=== PATIENT | female | born 1985 | race Caucasian/White ===

== ENCOUNTER 2017-10-01 17:04 | Emergency (ER) | payer OTHER ==
[~2017-10-01] VITALS: Ht 165.1 cm; Wt 108.0 kg
[2017-10-01 17:04] VITALS: BP 133/75
[~2017-10-01 17:04] MED LIST: HYDR-971 PO; ONDA4TAB10 PO
--- NOTE | 2017-10-01 17:39 | RAD ---
EXAM: 1. Left forearm 2 views. 2. Left wrist 3 views. HISTORY: Trauma. Left wrist and forearm pain. COMPARISON: None. FINDINGS: There is soft tissue swelling along the dorsal and ulnar aspect of the wrist. No fractures are identified throughout. The joint spaces and alignment of the left wrist are maintained. Joint spaces and alignment at the elbow are grossly maintained. IMPRESSION: 1. Soft tissue swelling. No fracture. Electronically signed by: Dario Gaines MD (10/01/2017 5:35 PM) [facility]
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
== END 2017-10-01 17:55 | disposition home or self-care (01) ==
LOC: ER 17:04
DX: S50.12XA Contusion of left forearm, initial encounter (principal); E03.9 Hypothyroidism, unspecified; Z88.5 Allergy status to narcotic agent; W22.8XXA Striking against or struck by other objects, initial encounter; Y93.89 Activity, other specified; Y99.8 Other external cause status; Y92.89 Other specified places as the place of occurrence of the external cause
CPT/HCPCS: 73090; 73110; 99284

== ENCOUNTER 2019-04-26 12:23 | Emergency (ER) | payer OTHER ==
[~2019-04-26] VITALS: Ht 165.1 cm; Wt 109.0 kg
[~2019-04-26 12:23] MED LIST changes: +HYDR-3165 PO; -HYDR-971 PO
[2019-04-26 12:33] VITALS: BP 152/93
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
--- NOTE | 2019-04-26 13:27 | RAD ---
CT of the bony orbits Indication: Possible blowout fracture. Exposure: One or more of the following individualized dose reduction techniques were utilized for this examination: 1. Automated exposure control 2. Adjustment of the mA and/or kV according to patient size 3. Use of iterative reconstruction technique. Technique: Standard imaging without intravenous contrast. Due to technique, study does not provide diagnostic intracranial evaluation but no obvious midline shift or mass effect. Orbits appear unremarkable. Globes appear intact. Orbital floors are intact. Extensive soft tissue air about the anterior orbit. Small pocket of air between the medial rectus muscle and medial orbital wall. No evidence of other fracture. Mild mucosal thickening of the maxillary sinuses. No paranasal sinus fluid levels seen. Ostiomeatal units are patent bilaterally. Mastoids and auditory canals appear grossly clear. IMPRESSION: No evidence of orbital floor fracture. Extensive soft tissue air around the left orbit. Electronically signed by: Roberto Rob MD (04/26/2019 1:24 PM) [facility]
== END 2019-04-26 14:05 | disposition home or self-care (01) ==
LOC: ER 12:23
DX: S00.12XA Contusion of left eyelid and periocular area, initial encounter (principal); E03.9 Hypothyroidism, unspecified; Z88.5 Allergy status to narcotic agent; W50.0XXA Accidental hit or strike by another person, initial encounter; Y93.83 Activity, rough housing and horseplay; Y92.89 Other specified places as the place of occurrence of the external cause; Y99.8 Other external cause status
CPT/HCPCS: 70486; 99284-25

== ENCOUNTER 2020-03-22 14:27 | Emergency (ER) | payer BC, OTHER ==
[~2020-03-22] VITALS: Ht 165.1 cm; Wt 118.0 kg
[2020-03-22] MEDS ORDERED: LIDO:MAALOX 1:1 20 ML SINGLE DOSE. PO ONE (15:00)
[2020-03-22] MEDS ORDERED: FAMOTIDINE 20 MG TABLET PO ONE (15:00)
[2020-03-22] MEDS ORDERED: FAMOTIDINE 20 MG/2 ML VIAL ONE (15:05)
--- NOTE | 2020-03-22 15:17 | PHYS DOC ---
Past History Past Medical History: Depression, GERD, Hypothyroid Past Surgical History: Alcohol Use: Occasionally Drug Use: None General Adult EDM: Chief Complaint: CHEST PAIN HPI: HPI: History taken patient. Patient is a 32-year-old female with history of GERD who presents with chief complaint of substernal chest pain. She states the pain began 2 hours ago while sitting down. States pain is a sharp burning pain. States it is more severe than her typical GERD. She did try Tums at home without relief. Does note nausea without vomiting. Denies metallic taste in her mouth or belching. Denies any history of cardiac disease. States she does not get exertional chest pain or dyspnea at baseline. Denies any PND. Denies swelling to the extremities bilaterally. Does note the pain seems to be slightly worse when she breathes in. Does not take any oral contraceptives or estrogen supplements. Denies cough or fever. Denies syncope. Does note hist ory of . denies a history of upper endoscopy. Reports normal bowel movements. Denies any alcohol or drug abuse. No other complaints. Review of Systems: Review of Systems: Constitutional: Denies fever or chills Eyes: Denies change in visual acuity HENT: Denies nasal congestion or sore throat Respiratory: Denies cough or shortness of breath Cardiovascular: Positive for chest pain GI: Denies abdominal pain, nausea, vomiting, bloody stools or diarrhea : Denies dysuria Musculoskeletal: Denies back pain or joint pain Integument: Denies rash Neurologic: Denies headache, focal weakness or sensory changes Endocrine: Denies polyuria or polydipsia Lymphatic: Denies swollen glands Psychiatric: Denies depression or anxiety Current Medications: Current Meds: Current Medications Medications (Trade) Dose Ordered Sig/Philly Start Time Stop Time Status Last Admin Dose Admin Famotidine (Pepcid Vial) 20 mg STK-MED ONCE 03/22/20 15:05 03/22/20 15:05 DC Famotidine (Pepcid) 20 mg 1X ONCE 03/22/20 15:00 03/22/20 15:14 DC 03/22/20 15:09 20 MG Multi-Ingredient Mouthwash/Gargle (Gi Cocktail) 20 ml 1X ONCE 03/22/20 15:00 03/22/20 15:14 DC 03/22/20 15:09 20 ML Allergies: Allergies: Allergies Coded Allergies Type Severity Reaction Last Updated Verified codeine Allergy Unknown 06/29/16 Yes Uncoded Allergies Type Severity Reaction Last Updated Verified PAPER TAPE Allergy Mild 06/29/16 Physical Exam: PE: Constitutional: Well developed, well nourished, no acute distress, non-toxic appearance. [] HENT: Normocephalic, atraumatic, bilateral external ears normal, oropharynx moist, no oral exudates, nose normal. [] Eyes: PERRLA, EOMI, conjunctiva normal, no discharge. [] Neck: Normal range of motion, no tenderness, supple, no stridor. [] Cardiovascular:Heart rate regular rhythm, no murmur [] Lungs & Thorax: Bilateral breath sounds clear to auscultation [] Abdomen: Soft, nontender, nonacute abdomen. No involuntary guarding or rigidity noted. No acute peritonitis. Skin: Warm, dry, no erythema, no rash. [] Back: No tenderness, no CVA tenderness. [] Extremities: No tenderness, no cyanosis, no clubbing, ROM intact, no edema. [] Neurologic: Alert and oriented X 3, normal motor function, normal sensory function, no focal deficits noted. [] Psychologic: Affect normal, judgement normal, mood normal. [] Current Patient Data: Labs: Laboratory Tests Test 03/22/20 14:53 03/22/20 14:57 White Blood Count 8.3 x10^3/uL Red Blood Count 4.54 x10^6/uL Hemoglobin 13.2 g/dL Hematocrit 40.4 % Mean Corpuscular Volume 89 fL Mean Corpuscular Hemoglobin 29 pg Mean Corpuscular Hemoglobin Concent 33 g/dL Red Cell Distribution Width 13.7 % Platelet Count 209 x10^3/uL Neutrophils (%) (Auto) 80 % Lymphocytes (%) (Auto) 11 % Monocytes (%) (Auto) 6 % Eosinophils (%) (Auto) 2 % Basophils (%) (Auto) 0 % Neutrophils # (Auto) 6.6 x10^3uL Lymphocytes # (Auto) 0.9 x10^3/uL Monocytes # (Auto) 0.5 x10^3/uL Eosinophils # (Auto) 0.2 x10^3/uL Basophils # (Auto) 0.0 x10^3/uL D-Dimer (Melvi) 0.46 mg/L Sodium Level 134 mmol/L Potassium Level 3.9 mmol/L Chloride Level 102 mmol/L Carbon Dioxide Level 23 mmol/L Anion Gap 9 Blood Urea Nitrogen 14 mg/dL Creatinine 0.9 mg/dL Estimated GFR (Cockcroft-Gault) 72.6 BUN/Creatinine Ratio 16 Glucose Level 115 mg/dL Calcium Level 9.4 mg/dL Total Bilirubin 0.2 mg/dL Aspartate Amino Transf (AST/SGOT) 21 U/L Alanine Aminotransferase (ALT/SGPT) 33 U/L Alkaline Phosphatase 85 U/L Total Protein 8.6 g/dL Albumin 3.9 g/dL Albumin/Globulin Ratio 0.8 Lipase 110 U/L Bedside Urine HCG, Qualitative hcg negative Current Medications Medications (Trade) Dose Ordered Sig/Philly Route PRN Reason Start Time Stop Time Status Last Admin Dose Admin Multi-Ingredient Mouthwash/Gargle (Gi Cocktail) 20 ml 1X ONCE PO 03/22/20 15:00 03/22/20 15:14 DC 03/22/20 15:09 Famotidine (Pepcid) 20 mg 1X ONCE PO 03/22/20 15:00 03/22/20 15:14 DC 03/22/20 15:09 Famotidine (Pepcid Vial) 20 mg STK-MED ONCE .ROUTE 03/22/20 15:05 03/22/20 15:05 DC Iohexol (Omnipaque 350 Mg/ml) 100 ml 1X ONCE IV 03/22/20 16:15 03/22/20 16:16 DC Info (Do NOT chart on this entry -- for MONITORING) 1 each PRN DAILY PRN MC SEE COMMENTS 03/22/20 16:15 03/24/20 16:14 Laboratory Tests Test 03/22/20 14:57 POC Urine HCG, Qualitative hcg negative (Negative) Vital Signs: Vital Signs Date Time Temp Pulse Resp B/P (MAP) Pulse Ox O2 Delivery O2 Flow Rate FiO2 03/22/20 14:42 98.0 59 20 154/76 (102) 100 Room Air EKG: EKG: [] EKG consistent with normal sinus rhythm. Ventricular rate is 60 bpm. Elizabeth normal. Intervals normal. No acute ischemic changes noted. Radiology/Procedures: Radiology/Procedures: [address] [address] IMAGING REPORT Signed PATIENT: XOCHITL PORTER ACCOUNT: [id number] : 1985 LOCATION: ER AGE: 34 SEX: F EXAM STATUS: REG ER ORD. PHYSICIAN: BRAIN CHAPA DO REASON: CHEST PAIN PROCEDURE: CHEST AP ONLY EXAM: CHEST AP ONLY INDICATION: Reason: CHEST PAIN / Spl. Instructions: / History: . TECHNIQUE: Single view COMPARISON: None FINDINGS: The heart size is normal. The great vessels appear unremarkable. There is no hilar or mediastinal mass. The lungs are clear. There is no pleural effusion or pneumothorax. There are no significant osseous abnormalities. IMPRESSION: No active cardiopulmonary disease. Electronically signed by: Nirali Sims MD (03/22/2020 3:34 PM) [facility] [place], [place] DICTATED AND SIGNED BY: NIRALI SIMS MD DATE: 03/22/20 1536 CC: STU MOROCHO PAC; BRAIN CHAPA DO ~MTH0 0 [] Heart Score: Risk Factors: Risk Factors: DM, Current or recent (<one month) smoker, HTN, HLP, family history of CAD, obesity. Risk Scores: Score 0 - 3: 2.5% MACE over next 6 weeks - Discharge Home Score 4 - 6: 20.3% MACE over next 6 weeks - Admit for Clinical Observation Score 7 - 10: 72.7% MACE over next 6 weeks - Early Invasive Strategies Course & Med Decision Making: Course & Med Decision Making Pertinent Labs and Imaging studies reviewed. (See chart for details) [] Patient is a very pleasant 34-year-old female who presents with chief complaint of epigastric and substernal pain. She does note that it is slightly worse when she breathes in. She does note a history of GERD but states this is more severe in nature. She did try Tums at home with no relief. Vital signs unremarkable. EKG without acute ischemic changes. Given the patient did report a pleuritic component to her discomfort D-dimer was obtained and was slightly elevated. Remainder of labs been unremarkable. She was treated with GI cocktail and oral Pepcid. She states her symptoms have almost completely resolved on repeat assessment. At this time she would prefer to decline CAT scan imaging. I did explain to her that without getting definitive CAT scan imaging in the setting of slightly elevated D-dimer that this will limit our ability to definitively exclude pulmonary embolism. Although I do feel she is low risk for pulmonary embolism D-dimer is slightly elevated. Although the risk is low I did explain that she potentially could have life-threatening underlying process still. Patient does express understanding and would still like to decline imaging. Patient does appear to be alert and oriented x3. She does appear to have capacity to make her own medical decisions and clinically sober. She does appear to have an understanding of her health care needs and potential consequences. At this time she will be declining CAT scan imaging. Her symptoms have resolved. Utilizing shared decision making patient will be discharged home with a course of Pepcid. She was instructed to follow-up with her primary care physician. Return precautions discussed and understood. Stable for discharge home. Sue Disclaimer: Sue Disclaimer: This electronic medical record was generated, in whole or in part, using a voice recognition dictation system. Departure Departure: Impression: Primary Impression: Epigastric pain Disposition: 01 DC HOME SELF CARE/HOMELESS Condition: STABLE Referrals: STU MOROCHO PAC (PCP) Patient Instructions: Heartburn Additional Instructions: Please follow-up with your primary care physician in the next week. Scripts Famotidine (PEPCID) 20 Mg Tablet 20 MG PO BID for dyspepsia for 7 Days, #14 TAB Prov: BRAIN CHAPA DO 03/22/20 BRAIN CHAPA DO Mar 22, 2020 15:17
[2020-03-22 15:18] LABS: BASO % 0 % (0-3); EOS # 0.2 x10^3/uL (0.0-0.7); EOS % 2 % (0-3); HEMATOCRIT 40.4 % (36.0-47.0); HEMOGLOBIN 13.2 g/dL (12.0-15.5); LYMPH # 0.9 x10^3/uL (1.0-4.8); LYMPH % 11 % (24-48); MEAN CORPUSCULAR HEMOGLOBIN 29 pg (25-35); MEAN CORPUSCULAR HGB CONC 33 g/dL (31-37); MEAN CORPUSCULAR VOLUME 89 fL (79-100); MONO # 0.5 x10^3/uL (0.0-1.1); MONO % 6 % (0-9); NEUT # 6.6 x10^3uL (1.8-7.7); NEUT % 80 % (31-73); PLATELET COUNT 209 x10^3/uL (140-400); RED BLOOD COUNT 4.54 x10^6/uL (3.50-5.40); RED CELL DISTRIBUTION WIDTH 13.7 % (11.5-14.5); WHITE BLOOD COUNT 8.3 x10^3/uL (4.0-11.0)
--- NOTE | 2020-03-22 15:21 | EKG ---
[address] [address] Test Date: 2020-03-22 Test Time: 14:45:44 Pat Name: XOCHITL PORTER Department: Room: Gender: F Scientific Research Associate: JOHN : 1985 Requested By: BRAIN CHAPA Order Number: [id number] Reading MD: Glenn Mullen Measurements Intervals [place] Rate: 60 P: 0 ID: [id number] QRS: 28 QRSD: 90 T: 28 QT: 420 QTc: 420 Interpretive Statements SINUS RHYTHM NORMAL ECG RI6.02 No previous ECG available for comparison Electronically Signed On 03-26-2020 10:56:08 TECHNOLOGY DIRECTOR by Glenn Mullen
--- NOTE | 2020-03-22 15:38 | RAD ---
EXAM: CHEST AP ONLY INDICATION: Reason: CHEST PAIN / Spl. Instructions: / History: . TECHNIQUE: Single view COMPARISON: None FINDINGS: The heart size is normal. The great vessels appear unremarkable. There is no hilar or mediastinal mass. The lungs are clear. There is no pleural effusion or pneumothorax. There are no significant osseous abnormalities. IMPRESSION: No active cardiopulmonary disease. Electronically signed by: Sudhir Sims MD (03/22/2020 3:34 PM) [facility] [place]
[2020-03-22 15:42] LABS: ALBUMIN 3.9 g/dL (3.4-5.0); ALBUMIN/GLOBULIN RATIO 0.8 (1.0-1.7); CALCIUM 9.4 mg/dL (8.5-10.1); CREATININE 0.9 mg/dL (0.6-1.0); GFR 72.6; POTASSIUM 3.9 mmol/L (3.5-5.1); TOTAL BILIRUBIN 0.2 mg/dL (0.2-1.0); TOTAL PROTEIN 8.6 g/dL (6.4-8.2)
[2020-03-22] MEDS ORDERED: IOHEXOL 350 MG/ML 100 ML VIAL. IV ONE (16:15)
[2020-03-22] MEDS ORDERED: CONTRAST GIVEN. MC PRN (16:15)
[2020-03-22 16:45] VITALS: BP 124/80
[2020-03-22] MEDS ORDERED: FAMO-63 PO (16:49)
== END 2020-03-22 16:59 | disposition home or self-care (01) ==
LOC: ER 14:27
DX: R10.13 Epigastric pain (principal); R07.89 Other chest pain; R11.0 Nausea; R20.8 Other disturbances of skin sensation; K21.9 Gastro-esophageal reflux disease without esophagitis; F32.9 Major depressive disorder, single episode, unspecified; E03.9 Hypothyroidism, unspecified; Z98.890 Other specified postprocedural states; Z88.5 Allergy status to narcotic agent; Z88.8 Allergy status to other drugs, medicaments and biological substances
CPT/HCPCS: 36415; 71045; 80053; 81025; 83690; 85025; 85379; 93005; 99285

== ENCOUNTER 2020-04-19 23:17 | Emergency (ER) | payer OTHER, BC ==
[~2020-04-19] VITALS: Ht 165.1 cm; Wt 118.0 kg
[2020-04-19 23:17] VITALS: BP 138/104
[~2020-04-19 23:17] MED LIST changes: +FAMO-63 PO
--- NOTE | 2020-04-19 23:35 | PHYS DOC ---
Past History Past Medical History: Depression, Gallstones, GERD, Hypothyroid Past Surgical History: Alcohol Use: Occasionally Drug Use: None General Adult HPI: HPI: ".. I just left [facility].. and they worked me up for Gall bladder...or Biliary Colic.. but the pain came back... .. I did nt get the meds filled.. and now the pain came back..and no where up here is open.." Patient is a 34 year old female who presents with above hx of biliary colic. Pt had [facility] by Dr. Hooper and discharged with diagnosis of biliary colic on 04/19/20 at 1738 hrs. patient had lab work and x-rays and sonogram. Patient discharged with hydrocodone Tylenol 5/325., Omeprazole 20 mg prescriptions. Patient did not fill prescriptions when she was downtown [place] and when she returned to [place] all the pharmacies are closed. Patient does have follow-up with surgery Dr Jacob Pandey. . Patient denies any past cardiac issues. Patient denies any history of depression. No history of trauma . No history of bad food. Has had previous episodes of biliary colic. Review of Systems: Review of Systems: Constitutional: Denies fever or chills Eyes: Denies change in visual acuity HENT: Denies nasal congestion or sore throat Respiratory: Denies cough or shortness of breath Cardiovascular: Denies chest pain or edema GI: Complains of right upper quadrant abdominal pain, nausea,. Denies vomiting, bloody stools or diarrhea . No dark or tarry stools : Denies dysuria Musculoskeletal: Denies back pain or joint pain Integument: Denies rash Neurologic: Denies headache, focal weakness or sensory changes Endocrine: Denies polyuria or polydipsia Lymphatic: Denies swollen glands Psychiatric: Denies depression or anxiety Family History: Family History: Noncontributory to presentation Current Medications: Current Meds: See nursing for home meds Allergies: Allergies: Allergies Coded Allergies Type Severity Reaction Last Updated Verified codeine Allergy Unknown 06/29/16 Yes Uncoded Allergies Type Severity Reaction Last Updated Verified PAPER TAPE Allergy Mild 06/29/16 Physical Exam: PE: Constitutional: In moderate acute distress, non-toxic appearance. [] HENT: Normocephalic, atraumatic, bilateral external ears normal, oropharynx moist, no oral exudates, nose normal. [] Eyes: PERRLA, EOMI, conjunctiva normal, no discharge. [] Neck: Normal range of motion, no tenderness, supple, no stridor. [] Cardiovascular:Heart rate regular rhythm, no murmur [] Lungs & Thorax: Bilateral breath sounds equal apex on auscultation [] Abdomen: Bowel sounds decreased, soft, right upper quadrant tenderness, no masses, no pulsatile masses. Rebound pain to right upper quadrant. Obese. Old surgery scar Skin: Warm, dry, no erythema, no rash. [] Back: No tenderness, no CVA tenderness. [] Extremities: No tenderness, no cyanosis, no clubbing, ROM intact, no edema. No cording. No psoas sign. Neurologic: Alert and oriented X 3, normal motor function, normal sensory function, no focal deficits noted. [] Psychologic: Affect normal, judgement normal, mood normal. [] EKG: EKG: [] Radiology/Procedures: Radiology/Procedures: [] Heart Score: Risk Factors: Risk Factors: DM, Current or recent (<one month) smoker, HTN, HLP, family history of CAD, obesity. Risk Scores: Score 0 - 3: 2.5% MACE over next 6 weeks - Discharge Home Score 4 - 6: 20.3% MACE over next 6 weeks - Admit for Clinical Observation Score 7 - 10: 72.7% MACE over next 6 weeks - Early Invasive Strategies Course & Med Decision Making: Course & Med Decision Making Pertinent Labs and Imaging studies reviewed. (See chart for details) Pt. delined repeat labs, x-rays or ekg. Patient to fill meds as previous directed. Patient get follow-up with surgery as previous directed. Patient return if any concerns. Impression: 1. Biliary colic 2. Gallstones [] Dragon Disclaimer: Dragon Disclaimer: This electronic medical record was generated, in whole or in part, using a voice recognition dictation system. Departure Departure: Referrals: STU MOROCHO PAC (PCP) Sue Disclaimer This chart was dictated in whole or in part using Voice Recognition software in a busy, high-work load, and often noisy Emergency Department environment. It may contain unintended and wholly unrecognized errors or omissions. Dragon Disclaimer This chart was dictated in whole or in part using Voice Recognition software in a busy, high-work load, and often noisy Emergency Department environment. It may contain unintended and wholly unrecognized errors or omissions. RIMA ROLON MD Apr 19, 2020 23:35
[2020-04-19] MEDS ORDERED: ONDANSETRON ODT 4 MG TAB.RAPDIS PO ONE (23:55)
[2020-04-19] MEDS ORDERED: KETOROLAC 60 MG/2 ML VIAL. IM ONE (23:55)
== END 2020-04-20 00:21 | disposition home or self-care (01) ==
LOC: ER 23:17
DX: K80.50 Calculus of bile duct without cholangitis or cholecystitis without obstruction (principal); K80.20 Calculus of gallbladder without cholecystitis without obstruction; K21.9 Gastro-esophageal reflux disease without esophagitis
CPT/HCPCS: 96372; 99283; J1885; Q0162

== ENCOUNTER 2020-07-06 14:51 | Emergency (ER) | payer OTHER, BC ==
[~2020-07-06] VITALS: Ht 165.1 cm; Wt 118.0 kg
[2020-07-06 14:51] VITALS: BP 136/81
--- NOTE | 2020-07-06 15:05 | PHYS DOC ---
Past History Past Medical History: Depression, Gallstones, GERD, Hypothyroid Past Surgical History: Alcohol Use: Occasionally Drug Use: None Adult General Chief Complaint Chief Complaint: ABDOMINAL PAIN HPI HPI Patient is a 35-year-old female presents with abdominal pain. Pain started earlier this morning and is located in the midepigastric region and right upper quadrant. Pain radiates to the back. Pain has been constant but has improved slightly since arriving to the ED. She has a history of cholecystitis and states that this pain feels very similar, however she did have a cholecystectomy in April 2020. She also has a history of heartburn and took Tums when the pain began with no relief. She also reports nausea but no vomiting. She rates the pain as a 4/10 right now but states that it was an 8/10 earlier this morning. Patient admits to heavy drinking last night, states she drank ~16oz tequila in celebration of family event and has never drank this quantity of alcohol in the past. Denies recreational drug use. She had a normal bowel movement this morning. Review of Systems Review of Systems Fourteen body systems of review of systems have been reviewed. See HPI for pertinent positives and negative responses, other rome all other systems are negative, non-pertinent or non-contributory Allergies Allergies Allergies Coded Allergies Type Severity Reaction Last Updated Verified codeine Allergy Unknown 06/29/16 Yes Uncoded Allergies Type Severity Reaction Last Updated Verified PAPER TAPE Allergy Mild 06/29/16 Physical Exam Physical Exam Constitutional: Well developed, well nourished, no acute distress, non-toxic appearance. HENT: Normocephalic, atraumatic, bilateral external ears normal, oropharynx moist, no oral exudates, nose normal. Eyes: PERRLA, EOMI, conjunctiva normal, no discharge. Neck: Normal range of motion, no tenderness, supple, no stridor. Cardiovascular: Heart rate regular, sinus rhythm, no murmurs rubs or gallops Lungs & Thorax: Bilateral breath sounds clear to auscultation Abdomen: Bowel sounds normal, soft, epigastric tender to palpation with mild guarding present, no rebound, no masses, no pulsatile masses. Nonsurgical abdomen, no peritoneal signs Skin: Warm, dry, no erythema, no rash. Back: No tenderness, no CVA tenderness. Extremities: No tenderness, no cyanosis, no clubbing, ROM intact, no edema. Neurologic: Alert and oriented X 3, grossly normal motor & sensory function, no focal deficits noted. Psychologic: Affect normal, judgement normal, mood normal. Current Patient Data Vital Signs Vital Signs Date Time Temp Pulse Resp B/P (MAP) Pulse Ox O2 Delivery O2 Flow Rate FiO2 07/06/20 14:51 98.2 75 18 136/81 (99) 100 Room Air Lab Results Laboratory Tests Test 07/06/20 15:05 07/06/20 15:45 07/06/20 16:00 White Blood Count 5.2 x10^3/uL Red Blood Count 4.31 x10^6/uL Hemoglobin 12.7 g/dL Hematocrit 38.3 % Mean Corpuscular Volume 89 fL Mean Corpuscular Hemoglobin 29 pg Mean Corpuscular Hemoglobin Concent 33 g/dL Red Cell Distribution Width 13.6 % Platelet Count 217 x10^3/uL Neutrophils (%) (Auto) 65 % Lymphocytes (%) (Auto) 21 % Monocytes (%) (Auto) 9 % Eosinophils (%) (Auto) 3 % Basophils (%) (Auto) 1 % Neutrophils # (Auto) 3.4 x10^3uL Lymphocytes # (Auto) 1.1 x10^3/uL Monocytes # (Auto) 0.5 x10^3/uL Eosinophils # (Auto) 0.2 x10^3/uL Basophils # (Auto) 0.1 x10^3/uL Sodium Level 143 mmol/L Potassium Level 4.2 mmol/L Chloride Level 108 mmol/L Carbon Dioxide Level 28 mmol/L Anion Gap 7 Blood Urea Nitrogen 15 mg/dL Creatinine 1.0 mg/dL Estimated GFR (Cockcroft-Gault) 63.9 BUN/Creatinine Ratio 15 Glucose Level 94 mg/dL Calcium Level 9.4 mg/dL Total Bilirubin 0.3 mg/dL Aspartate Amino Transf (AST/SGOT) 25 U/L Alanine Aminotransferase (ALT/SGPT) 40 U/L Alkaline Phosphatase 71 U/L Total Protein 8.1 g/dL Albumin 3.8 g/dL Albumin/Globulin Ratio 0.9 Lipase 114 U/L Urine Collection Type Unknown Urine Color Yellow Urine Clarity Cloudy Urine pH 8.5 Urine Specific [place] 1.020 Urine Protein Trace Urine Glucose (UA) Neg mg/dL Urine Ketones (Stick) Neg mg/dL Urine Blood Neg Urine Nitrite Neg Urine Bilirubin Neg Urine Urobilinogen Dipstick 0.2 mg/dL Urine Leukocyte Esterase Trace Urine RBC Occ /HPF Urine WBC Occ /HPF Urine Squamous Epithelial Cells Mod /LPF Urine Amorphous Sediment Present /HPF Urine Bacteria Mod /HPF Bedside Urine HCG, Qualitative hcg negative Current Medications Medications (Trade) Dose Ordered Sig/[place] Route PRN Reason Start Time Stop Time Status Last Admin Dose Admin Morphine Sulfate (Morphine 2mg Syringe) 2 mg PRN Q15MIN PRN IV/SQ PAIN GREATER THAN 3/10 07/06/20 15:15 07/07/20 15:14 07/06/20 15:42 Sodium Chloride 1,000 ml @ 1,000 mls/hr Q1H IV 07/06/20 15:15 07/06/20 16:14 DC 07/06/20 15:42 Famotidine (Pepcid Vial) 20 mg 1X ONCE IVP 07/06/20 15:15 07/06/20 15:38 DC 07/06/20 15:42 Iohexol (Omnipaque 300 Mg/ml) 75 ml 1X ONCE IV 07/06/20 15:45 07/06/20 15:46 DC 07/06/20 15:58 Ondansetron HCl (Zofran) 4 mg STK-MED ONCE .ROUTE 07/06/20 15:39 07/06/20 15:39 DC Ondansetron HCl (Zofran) 4 mg 1X ONCE IVP 07/06/20 15:45 07/06/20 15:50 DC 07/06/20 15:42 Morphine Sulfate (Morphine 2mg Syringe) 2 mg 1X ONCE IV 07/06/20 16:45 07/06/20 16:46 UNV EKG EKG EKG ordered and interpreted by myself at 1503 hrs. as sinus rhythm at 68 bpm, unremarkable intervals, no axis deviation, no acute ischemic findings, no STEMI Radiology/Procedures Radiology/Procedures PROCEDURE: CT ABD PELV W/ IV CONTRST ONLY CT abdomen and pelvis with IV contrast 07/06/2020. Reason for exam: Epigastric pain extending to the back. History of cholecystectomy. CT images were made through the abdomen and pelvis using an infusion of 75 mL Omnipaque 300. No oral contrast was given. Exposure: One or more of the following individualized dose reduction techniques were utilized for this examination: 1. Automated exposure control 2. Adjustment of the mA and/or kV according to patient size 3. Use of iterative reconstruction technique. FINDINGS: The lung bases are clear. The liver and spleen are homogeneous in density and normal in configuration. Both kidneys enhance with contrast. No mass or obstruction is seen. There is a tiny cyst medially in the left kidney. The adrenal glands are not enlarged. No pancreatic abnormality is seen. There is no apparent retroperitoneal or mesenteric adenopathy. No abdominal mass or inflammatory process is seen. Images through the pelvis show no abnormality of the distal ureters or bladder. No pelvic or inguinal adenopathy is seen. The uterus contains a contraceptive device. There may be a partly collapsed right ovarian cyst. The uterus and adnexal structures otherwise appear normal for age. No separate pelvic mass or inflammatory process is seen. A small normal appendix is probably shown extending inferiorly off the cecum. IMPRESSION: No significant acute abnormality. Electronically signed by: Case Valiente Jr., MD (07/06/2020 4:21 PM) [facility] Heart Score C/O Chest Pain: No HEART Score for Chest Pain: HEART Score for Chest Pain Response (Comments) Value History Slighlty/Non-Suspicious 0 ECG Normal 0 Age < 45 0 Risk Factors 1 or 2 Risk Factors 1 Troponin < Normal Limit 0 Total 1 Risk Factors: Risk Factors: DM, Current or recent (<one month) smoker, HTN, HLP, family history of CAD, obesity. Risk Scores: Risk Factors: DM, Current or recent (<one month) smoker, HTN, HLP, family history of CAD, obesity. Course & Med Decision Making Course & Med Decision Making Afebrile, hemodynamically stable patient with history concerning for pancreatitis versus alcoholic gastritis. Physical exam grossly nonconcerning for any acute abnormality or emergent surgical intervention Comprehensive ER work-up reviewed with patient, I discussed grossly benign work- up at length with patient with good understanding of all ordered diagnostic studies Patient responded to IV hydration, pain control with morphine and PPI administration. Patient reevaluated numerous times while in ER with continual improvement. Patient voicing she was ready for discharge home near end of ER visit I disclosed there were no obvious emergent and/or surgical findings this ER visit but also disclosed this might be an acute presentation more concerning pathology and so, close outpatient PCP follow-up was advised I discussed role of continued supportive care practices such as alcohol cessation and prescribed patient PPI for short-term use. I discussed need for PCP follow-up and for consideration of GI referral if symptoms are persist Strict return precautions were discussed with good understanding by patient, all questions and concerns addressed prior to ER departure and improved condition Sue Disclaimer Sue Disclaimer This electronic medical record was generated, in whole or in part, using a voice recognition dictation system. Departure Departure: Impression: Primary Impression: Epigastric pain Disposition: DC HOME SELF CARE/HOMELESS Condition: IMPROVED Referrals: ST[facility] MOROCHO PAC (PCP) Patient Instructions: Gastritis, Adult Additional Instructions: You have been evaluated in the Emergency Department today for abdominal pain. Your evaluation was not suggestive of any emergent condition requiring medical intervention at this time. However, some abdominal problems make take more time to appear. Therefore, it is important for you to watch for any new symptoms or worsening of your current condition. As discussed, you are being treated for gastritis that was likely flared up due to alcohol use. Please use prescribed medication as directed to completion Please call your primary care physician first thing Wednesday to schedule outpatient follow-up in upcoming 2 to 10 days time for repeat evaluation. As disclose, you might require outpatient GI referral for further evaluation and/or intervention Return to the Emergency Department if you experience worsening pain, persistent fevers greater than 100.4, recurrent vomiting, blood in vomit, blood in stool, dark tarry stool, chest pain, difficulty breathing, or any other concerning symptoms. Scripts Omeprazole (OMEPRAZOLE) 20 Mg Tablet. 1 TAB PO DAILY for GASTRITIS, #14 TAB 1 Refill Prov: MARTHA ARIZA DO 07/06/20 MARTHA ARIZA DO Jul 06, 2020 15:05
[2020-07-06] MEDS ORDERED: IV NORMAL SALINE 1,000ML 1,000 ML IV SCH (15:15)
[2020-07-06] MEDS ORDERED: FAMOTIDINE 20 MG/2 ML VIAL IVP ONE (15:15)
[2020-07-06] MEDS ORDERED: ONDANSETRON PF 4 MG/2 ML VIAL. ONE (15:39)
[2020-07-06] MEDS: MORPHINE SULFATE 2 MG/ML DISP.SYRIN. IV/SQ PRN ×2 (15:42→16:44)
[2020-07-06 15:45] LABS: BASO # 0.1 x10^3/uL (0.0-0.2); BASO % 1 % (0-3); EOS # 0.2 x10^3/uL (0.0-0.7); EOS % 3 % (0-3); HEMATOCRIT 38.3 % (36.0-47.0); HEMOGLOBIN 12.7 g/dL (12.0-15.5); LYMPH # 1.1 x10^3/uL (1.0-4.8); LYMPH % 21 % (24-48); MEAN CORPUSCULAR HEMOGLOBIN 29 pg (25-35); MEAN CORPUSCULAR HGB CONC 33 g/dL (31-37); MEAN CORPUSCULAR VOLUME 89 fL (79-100); MONO # 0.5 x10^3/uL (0.0-1.1); MONO % 9 % (0-9); NEUT # 3.4 x10^3uL (1.8-7.7); NEUT % 65 % (31-73); PLATELET COUNT 217 x10^3/uL (140-400); RED BLOOD COUNT 4.31 x10^6/uL (3.50-5.40); RED CELL DISTRIBUTION WIDTH 13.6 % (11.5-14.5); WHITE BLOOD COUNT 5.2 x10^3/uL (4.0-11.0)
[2020-07-06] MEDS ORDERED: IOHEXOL 300 MG/ML 75 ML VIAL. IV ONE (15:45)
[2020-07-06] MEDS ORDERED: ONDANSETRON PF 4 MG/2 ML VIAL. IVP ONE (15:45)
[2020-07-06 15:46] LABS: CALCIUM 9.4 mg/dL (8.5-10.1); GFR 63.9; POTASSIUM 4.2 mmol/L (3.5-5.1)
[2020-07-06 15:52] LABS: ALBUMIN 3.8 g/dL (3.4-5.0); ALBUMIN/GLOBULIN RATIO 0.9 (1.0-1.7); TOTAL BILIRUBIN 0.3 mg/dL (0.2-1.0); TOTAL PROTEIN 8.1 g/dL (6.4-8.2)
[2020-07-06 16:20] LABS: COLOR,URINE YELLOW
[2020-07-06 16:21] LABS: BILIRUBIN,URINE NEG (NEG); CLARITY,URINE CLOUDY; GLUCOSE,URINE NEG (NEG); NITRITE,URINE NEG (NEG); RBC,URINE OCC /HPF (0-2); UROBILINOGEN,URINE 0.2 mg/dL (0.2 mg/dL); WBC,URINE OCC /HPF (0-4)
[2020-07-06 16:22] LABS: AMORPHOUS SEDIMENT,UR PRESENT /HPF; BACTERIA,URINE MOD /HPF (0-FEW); SQUAMOUS EPITHELIAL CELL,UR MOD /LPF
--- NOTE | 2020-07-06 16:23 | RAD ---
CT abdomen and pelvis with IV contrast 07/06/2020. Reason for exam: Epigastric pain extending to the back. History of cholecystectomy. CT images were made through the abdomen and pelvis using an infusion of 75 mL Omnipaque 300. No oral contrast was given. Exposure: One or more of the following individualized dose reduction techniques w ere utilized for this examination: 1. Automated exposure control 2. Adjustment of the mA and/or kV according to patient size 3. Use of iterative reconstruction technique. FINDINGS: The lung bases are clear. The liver and spleen are homogeneous in density and normal in con figuration. Both kidneys enhance with contrast. No mass or obstruction is seen. There is a tiny cyst medially in the left kidney. The adrenal glands are not enlarged. No pancreatic abnormality is seen. There is no apparent retroperitoneal or mesenteric adenopathy. No abdominal mass or inflammatory proc ess is seen. Images through the pelvis show no abnormality of the distal ureters or bladder. No pelvic or inguinal adenopathy is seen. The uterus contains a contraceptive device. There may be a partly collapsed righ t ovarian cyst. The uterus and adnexal structures otherwise appear normal for age. No separate pelvic mass or inflammatory process is seen. A small normal appendix is probably shown extending inferiorly off the cecum. IMPRESSION: No significant acute abnormality. Electronically signed by: Case Valiente Jr., MD (07/06/2020 4:21 PM) [facility]
[2020-07-06] MEDS ORDERED: OMEP20TA8 PO (16:42)
[2020-07-06] MEDS ORDERED: MORPHINE SULFATE 2 MG/ML DISP.SYRIN. IV ONE (16:45)
--- NOTE | 2020-07-06 17:48 | EKG ---
[address] [address] Test Date: 2020-07-06 Test Time: 15:00:06 Pat Name: XOCHITL PORTER Department: Room: Gender: F Crew Dispatcher: KATE : 1985 Requested By: MARTHA ARIZA Order Number: [id number] Reading MD: Measurements Intervals [place] Rate: 68 P: 0 VT: 134 QRS: 35 QRSD: 84 T: 43 QT: 374 QTc: 402 Interpretive Statements SINUS RHYTHM NORMAL ECG RI6.02 No previous ECG available for comparison
== END 2020-07-06 17:12 | disposition home or self-care (01) ==
LOC: ER 14:51
DX: R10.13 Epigastric pain (principal); R10.11 Right upper quadrant pain; R11.0 Nausea; F32.9 Major depressive disorder, single episode, unspecified; K21.9 Gastro-esophageal reflux disease without esophagitis; E03.9 Hypothyroidism, unspecified; Z98.890 Other specified postprocedural states; Z90.49 Acquired absence of other specified parts of digestive tract; Z88.5 Allergy status to narcotic agent
CPT/HCPCS: 36415; 74177; 80053; 81001; 81025; 83690; 85025; 87086; 93005; 96372; 96374; 96375; 96376; 99285; J2270; J2405; J3490; J7030; Q9967

== ENCOUNTER 2021-08-20 09:10 | Emergency (ER) | payer OTHER ==
[~2021-08-20] VITALS: Ht 165.1 cm; Wt 122.0 kg
[~2021-08-20 09:10] MED LIST changes: +OMEP20TA91 PO
[2021-08-20] MEDS ORDERED: FAMOTIDINE 20 MG/2 ML VIAL IVP ONE (09:30)
[2021-08-20] MEDS ORDERED: IV NORMAL SALINE 1,000ML 1,000 ML IV ONE (09:30)
[2021-08-20] MEDS ORDERED: IOHEXOL 300 MG/ML 75 ML VIAL. IV ONE (09:45)
[2021-08-20] MEDS ORDERED: ONDANSETRON PF 4 MG/2 ML VIAL. IVP ONE (09:45)
--- NOTE | 2021-08-20 09:46 | PHYS DOC ---
Past History Past Medical History: Depression, Gallstones, GERD, Hypothyroid Past Surgical History: Cholecystectomy, Alcohol Use: None Drug Use: None General Adult EDM: Chief Complaint: GI PROBLEM HPI: HPI: 36-year-old female presents with epigastric abdominal pain. The patient was at work when the pain started. She states that it felt like a gallbladder attack but she had a gallbladder out a year ago. It is a stabbing cramping that he rated the epigastric area radiated through to her back. She has taken some Tums without relief. Patient does get occasional heartburn. At its worst the pain was an 8 out of 10. It is currently a 4 out of 10. It seems to come and go in waves. Patient denies drinking alcohol. No history of pancreatitis. Review of Systems: Review of Systems: Constitutional: Denies fever or chills Eyes: Denies change in visual acuity HENT: Denies nasal congestion or sore throat Respiratory: Denies cough or shortness of breath Cardiovascular: Denies chest pain or edema GI: Epigastric abdominal pain. Denies nausea, vomiting, bloody stools or diarrhea : Denies dysuria Musculoskeletal: Denies back pain or joint pain Integument: Denies rash Neurologic: Denies headache, focal weakness or sensory changes Endocrine: Denies polyuria or polydipsia Lymphatic: Denies swollen glands Psychiatric: Denies depression or anxiety Current Medications: Current Meds: Current Medications Medications (Trade) Dose Ordered Sig/[place] Start Time Stop Time Status Last Admin Dose Admin Famotidine (Pepcid Vial) 20 mg 1X ONCE 08/20/21 09:30 08/20/21 09:32 DC Ondansetron HCl (Zofran) 4 mg 1X ONCE 08/20/21 09:45 08/20/21 09:46 Sodium Chloride 1,000 ml @ 1,000 mls/hr 1X ONCE 08/20/21 09:30 08/20/21 10:29 Allergies: Allergies: Allergies Coded Allergies Type Severity Reaction Last Updated Verified codeine Allergy Unknown 06/29/16 Yes Uncoded Allergies Type Severity Reaction Last Updated Verified PAPER TAPE Allergy Mild 06/29/16 Physical Exam: PE: Constitutional: Well developed, well nourished, morbidly obese, no acute distress, non-toxic appearance. [] HENT: Normocephalic, atraumatic, bilateral external ears normal, oropharynx moist, no oral exudates, nose normal. [] Eyes: PERRLA, EOMI, conjunctiva normal, no discharge. [] Neck: Normal range of motion, no tenderness, supple, no stridor. [] Cardiovascular: Heart rate regular rhythm, no murmur [] Lungs & Thorax: Bilateral breath sounds clear to auscultation [] Abdomen: Bowel sounds normal, soft, mild epigastric tenderness, no masses, no pulsatile masses. [] Skin: Warm, dry, no erythema, no rash. [] Back: No tenderness, no CVA tenderness. [] Extremities: No tenderness, no cyanosis, no clubbing, ROM intact, no edema. [] Neurologic: Alert and oriented X 3, normal motor function, normal sensory function, no focal deficits noted. [] Psychologic: Affect normal, judgement normal, mood normal. [] Current Patient Data: Vital Signs: Vital Signs Date Time Temp Pulse Resp B/P (MAP) Pulse Ox O2 Delivery O2 Flow Rate FiO2 08/20/21 09:21 98.0 60 18 126/68 (87) 97 Room Air EKG: EKG: [] Radiology/Procedures: Radiology/Procedures: [] Impressions: Exam Date: 08/20/2021 10:[address] ABDOMEN+PELVIS W Indication: Reason: epigastric pain radiates to back, OMNI 300, 75ml, cholecystecomy / Spl. Instructions: / History: . TECHNIQUE: CT examination of the abdomen and pelvis was performed following the administration of nonionic intravenous contrast. One or more of the following dose reduction techniques were utilized: *Automated exposure control (AEC) *Adjustment of mA and/or kV according to patient size *Use of iterative reconstruction technique *CT scan done according to ALARA, or ALARA/IMAGE GENTLY COMPARISON: July 06, 2020 FINDINGS: The visualized lung bases are clear. Status post cholecystectomy. The liver, spleen, pancreas, adrenal glands and kidneys are normal. Urinary bladder is normal in appearance. Intrauterine device is noted. A small nabothian cyst is noted. There is no bowel obstruction or inflammation. The appendix is normal. No significant atherosclerotic calcifications are seen. No lymphadenopathy or ascites is seen. Osseous structures are intact. IMPRESSION: No evidence of acute intra-abdominal pathology. Electronically signed by: Janelle Dennis MD (08/20/2021 10:50 AM) [id number] DICTATED AND SIGNED BY: JANELLE DENNIS MD DATE: 08/20/21 1007 CC: GIORGIO HANNAH DO; [facility] PAC ~ Heart Score: C/O Chest Pain: N/A Risk Factors: Risk Factors: DM, Current or recent (<one month) smoker, HTN, HLP, family histo ry of CAD, obesity. Risk Scores: Score 0 - 3: 2.5% MACE over next 6 weeks - Discharge Home Score 4 - 6: 20.3% MACE over next 6 weeks - Admit for Clinical Observation Score 7 - 10: 72.7% MACE over next 6 weeks - Early Invasive Strategies Course & Med Decision Making: Course & Med Decision Making Pertinent Labs and Imaging studies reviewed. (See chart for details) The patient's labs are unremarkable. Her lipase is normal. CT the abdomen pelvis is unremarkable. I have given the patient 20 mg of Pepcid IV, Zofran and a liter normal saline. The patient discomfort could be GERD or musculoskeletal. It does not appear to be life-threatening at this time. She is stable for discharge. [] Dragon Disclaimer: Dragon Disclaimer: This electronic medical record was generated, in whole or in part, using a voice recognition dictation system. Departure Departure: Impression: Primary Impression: Epigastric pain Disposition: HOME / SELF CARE / HOMELESS Condition: STABLE Referrals: ST[facility] MORO[facility] PAC (PCP) Patient Instructions: Abdominal Pain, [id number] GIORGIO HANNAH DO Aug 20, 2021 09:46
[2021-08-20 09:52] LABS: BASO % 1 % (0-3); EOS # 0.6 x10^3/uL (0.0-0.7); EOS % 9 % (0-3); HEMATOCRIT 37.8 % (36.0-47.0); HEMOGLOBIN 12.5 g/dL (12.0-15.5); LYMPH # 1.2 x10^3/uL (1.0-4.8); LYMPH % 16 % (24-48); MEAN CORPUSCULAR HEMOGLOBIN 29 pg (25-35); MEAN CORPUSCULAR HGB CONC 33 g/dL (31-37); MEAN CORPUSCULAR VOLUME 88 fL (79-100); MONO # 0.5 x10^3/uL (0.0-1.1); MONO % 7 % (0-9); NEUT # 4.8 x10^3uL (1.8-7.7); NEUT % 68 % (31-73); PLATELET COUNT 215 x10^3/uL (140-400); RED BLOOD COUNT 4.28 x10^6/uL (3.50-5.40); WHITE BLOOD COUNT 7.1 x10^3/uL (4.0-11.0)
[2021-08-20] MEDS ORDERED: CONTRAST GIVEN. MC PRN (10:00)
[2021-08-20 10:02] LABS: CALCIUM 9.3 mg/dL (8.5-10.1); CREATININE 0.8 mg/dL (0.6-1.0); GFR 82.1
[2021-08-20 10:07] LABS: ALBUMIN 3.4 g/dL (3.4-5.0); ALBUMIN/GLOBULIN RATIO 0.8 (1.0-1.7); TOTAL BILIRUBIN 0.3 mg/dL (0.2-1.0); TOTAL PROTEIN 7.9 g/dL (6.4-8.2)
--- NOTE | 2021-08-20 10:52 | RAD ---
Exam Date: 08/20/2021 10:[address] ABDOMEN+PELVIS W Indication: Reason: epigastric pain radiates to back, OMNI 300, 75ml, cholecystecomy / Spl. Instructi ons: / History: . TECHNIQUE: CT examination of the abdomen and pelvis was performed following the administration of no nionic intravenous contrast. One or more of the following dose reduction techniques were utilized: *Automated exposure control (AEC) *Adjustment of mA and/or kV according to patient size *Use of iterative reconstruction technique *CT scan done according to ALARA, or ALARA/IMAGE GENTLY COMPARISON: July 06, 2020 FINDINGS: The visualized lung bases are clear. Status post cholecystectomy. The liver, spleen, pancreas, adrenal glands and kidneys are normal. Urinary bladder is normal in appearance. Intrauterine device is noted. A small nabothian cyst is no thomas. There is no bowel obstruction or inflammation. The appendix is normal. No significant atherosclerotic calcifications are seen. No lymphadenopathy or ascites is seen. Osseous structures are intact. IMPRESSION: No evidence of acute intra-abdominal pathology. Electronically signed by: Holland Dennis MD (08/20/2021 10:50 AM) [id number]
[2021-08-20 11:48] VITALS: BP 118/75
--- NOTE | 2021-08-20 18:55 | EKG ---
[address] [address] Test Date: 2021-08-20 Test Time: 11:51:05 Pat Name: XOCHITL PORTER Department: Room: Gender: F Dental Assistant Medical Assistant: : 1985 Requested By: GIORGIO HANNAH Order Number: [id number] Reading MD: Case Ramirez Measurements Intervals [place] Rate: 59 P: [place]: QRS: 22 QRSD: 84 T: 28 QT: 420 QTc: 416 Interpretive Statements SINUS RHYTHM NON SPECIFIC ST-T WAVE CHANGES Electronically Signed On 08-22-2021 18:22:50 CDT by Case Ramirez
== END 2021-08-20 12:15 | disposition home or self-care (01) ==
LOC: ER 09:10
DX: R10.13 Epigastric pain (principal); K21.9 Gastro-esophageal reflux disease without esophagitis; E03.9 Hypothyroidism, unspecified; Z90.49 Acquired absence of other specified parts of digestive tract; Z98.890 Other specified postprocedural states; Z88.5 Allergy status to narcotic agent
CPT/HCPCS: 36415; 74177; 80053; 83690; 84484; 85025; 93005; 96361; 96374; 96375; 99285; J2405; J3490; J7030